=== PATIENT | female | born 1950 | race Caucasian/White ===

== ENCOUNTER 2017-08-15 10:48 | Emergency (ER) | payer MEDICARE, OTHER ==
[2017-08-15 12:40] VITALS: BP 120/49
--- NOTE | 2017-08-15 13:18 | UC ---
Abdominal Pain Female HPI - HPI Summary HPI Summary: Per hand profiler "Nausea for the last 2 weeks. Then she started to have increased frequency with urination about 1 week ago. She went to her PCP and her urine was normal but she was given medication anyway. Her symptoms have not improved. She does have lower abd pain that is intermittent." States that she had same sx 09/15 and had no relief with zofran. states that she came here and saw luan Powers who told her to do something and sx resolved w/ in 1-2 days. she does not recall what instructions were. no records in EMR of this visit. biggest issue today is nausea. denies vomiting, no melena, blood, diarrhea or constipation. no dysruria. no fevers or chills. denies CP. she does have DM adn lipids. She denies abdominal pain. she has urinary freq with significant amount of volume. no urgency. nausea is worse duirng the day and resolves in the vening after she makes herself eata full meal. sx restart in AM though. she used to be on pepcid and had stopped it but restarted it 2 wks ago to see if that would help, but it has not. reports UTD with colonosocpy that was nml and not due a for a coupel more years. denies gerd sx. denies nsaid use. no known CAD. no fhx cad. - History of Current Complaint Chief Complaint: UCGeneralIllness Stated Complaint: NAUSEA,URINARY COMPALINT Time Seen by Provider: 08/15/17 12:34 Allergies/Adverse Reactions: Allergies Allergy/AdvReac Type Severity Reaction Status Date / Time Alendronate [From Fosamax] Allergy Diarrhea Verified 08/15/17 12:39 Metformin Allergy Diarrhea Verified 08/15/17 12:39 PMH/Surg Hx/FS Hx/Imm Hx Previously Healthy: Yes Endocrine History: Diabetes, Dyslipidemia Cardiovascular History: Hypertension - Surgical History Surgical History: Yes Surgery Procedure, Year, and Place: Cholecystectomy, 2010, [facility] - Family History Known Family History: Positive: Diabetes Negative: Cardiac Disease - Social History Alcohol Use: "once a month ... could be a couple times a week" Substance Use Type: None Smoking Status (MU): Never Smoked Tobacco - Immunization History Most Recent Influenza Vaccination: Current for 2014/2015 Season Review of Systems Constitutional: Negative Skin: Negative Eyes: Negative ENT: Negative Respiratory: Negative Cardiovascular: Negative Gastrointestinal: Nausea Genitourinary: Negative Motor: Negative Neurovascular: Negative Musculoskeletal: Negative Neurological: Negative Psychological: Negative Is Patient Immunocompromised?: No All Other Systems Reviewed And Are Negative: Yes Physical Exam Triage Information Reviewed: Yes Appearance: Well-Appearing, No Pain Distress, Well-Nourished - very pleasant Vital Signs: Initial Vital Signs Temp 97.2 F 08/15/17 12:33 Pulse 64 08/15/17 12:33 Resp 14 08/15/17 12:33 BP 120/49 08/15/17 12:33 Pulse Ox 100 08/15/17 12:33 Vital Signs Reviewed: Yes Eye Exam: Normal ENT Exam: Normal ENT: Positive: Pharynx normal, TMs normal Dental Exam: Normal Neck exam: Normal Neck: Positive: Supple, Nontender, No Lymphadenopathy Respiratory Exam: Normal Respiratory: Positive: Lungs clear, Normal breath sounds, No respiratory distress. Negative: Crackles, Rhonchi, Stridor, Wheezing Cardiovascular Exam: Normal Cardiovascular: Positive: RRR, No Murmur, Pulses Normal Abdominal Exam: Normal Abdomen Description: Positive: Nontender, Soft. Negative: CVA Tenderness (R), CVA Tenderness (L), Distended, Guarding, Pulsatile Mass, Splenomegaly Bowel Sounds: Positive: Present Musculoskeletal Exam: Normal Neurological Exam: Normal Psychological Exam: Normal Skin Exam: Normal Abd Pain Female Course/Dx - Course Course Of Treatment: EKG- NSR, nml axis, no AV/IV changes, no ST/T changes. no previous to compare. Urinary sx are not infectious. UA is nml and she has no relief of only urinary c/o which is freqiency (no dysuria or urgency). With h/ o DM, consideration to CAD should be given and perhaps further work up may be necessary with PCP. Also. GI work up. has not been on her pepcid jermaine long time and restarted it 2 wks ago w/o relief of current sx. Change to PPI to see if this helps - can be sx relief as well as diagnostic. she understood me well and is very happy with this plan. - Differential Dx/Diagnosis Differential Diagnosis: ACS, Peptic Ulcer Disease, Urinary Tract Infection Provider Diagnoses: nausea, urinary frequency
== END 2017-08-15 14:13 | disposition home or self-care (01) ==
LOC: UCCORT 10:48
DX: R11.0 Nausea (principal); R35.0 Frequency of micturition; E11.9 Type 2 diabetes mellitus without complications; E78.5 Hyperlipidemia, unspecified; I10 Essential (primary) hypertension; Z88.8 Allergy status to other drugs, medicaments and biological substances
CPT/HCPCS: 81003; 87086; 93005; 99212; G0463

== ENCOUNTER 2019-05-01 11:00 | Emergency (ER) | payer MEDICARE, OTHER ==
--- NOTE | 2019-05-01 11:23 | ED ---
Complex/Multi-Sys Presentation - HPI Summary HPI Summary: 68 year old F brought in by ambulance to [facility] accompanied by with a chief complaint of hypoglycemia, fatigue, weakness since 2 hours ago this morning. The patient rates the pain 0/10 in severity. Symptoms aggravated by nothing. Symptoms alleviated by nothing. Patient reports dizziness, shakiness, aphasia that have since resolved. reports recent weight loss and decreased appetite. Patient recently started taking Ozempic for hx diabetes. Yesterday, patient checked her blood glucose level and it was 47. She drank some orange juice and felt better. This morning, patient overslept past her alarm. She tried to picking tech her phone from the bedside table but wasn't able to. She tried to sit up and walk but wasn't able to. Patient checked her blood glucose level and it was 60. Patient wasn't able to get her words out so her called EMS. brought her some orange juice that she drank. Per EMS, patient had some facial droop on arrival to scene. EMS states that patient is talking fine now. - History Of Current Complaint Time Seen by Provider: 05/01/19 11:07 Hx Obtained From: Patient, Family/Government Property Inspector - , EMS Onset/Duration: Lasting Hours - 2, Still Present Timing: Constant Severity Currently: None Aggravating Factor(s): Nothing Alleviating Factor(s): Nothing Associated Signs And Symptoms: Positive: Other - dizziness, shakiness, aphasia and slurred speech that have since resolved; recent weight loss and decreased appetite - Allergies/Home Medications Allergies/Adverse Reactions: Allergies Allergy/AdvReac Type Severity Reaction Status Date / Time alendronate sodium Allergy Diarrhea Verified 12/31/18 12:18 [From Fosamax] metformin Allergy Diarrhea Verified 12/31/18 12:18 PMH/Surg Hx/FS Hx/Imm Hx Previously Healthy: No Endocrine/Hematology History: Reports: Hx Diabetes Cardiovascular History: Reports: Hx Hypertension - Cancer History Hx Chemotherapy: No Hx Radiation Therapy: No - Surgical History Surgery Procedure, Year, and Place: Cholecystectomy, 2011, [facility] - Family History Known Family History: Positive: Diabetes Negative: Cardiac Disease - Social History Alcohol Use: "once a month ... could be a couple times a week" Hx Substance Use: No Substance Use Type: Reports: None Hx Tobacco Use: No Smoking Status (MU): Never Smoked Tobacco Review of Systems Positive: Fatigue, Other - recent weight loss Positive: Other - hypoglycemia Positive: Other - decreased appetite Positive: Weakness All Other Systems Reviewed And Are Negative: Yes Physical Exam - Summary Physical Exam Summary: Appearance: The patient is well-nourished in no acute distress and in no acute pain. Skin: The skin is warm and dry and skin color reflects adequate perfusion. HEENT: The head is normocephalic and atraumatic. The pupils are equal and reactive. The conjunctivae are clear and without drainage. Nares are patent and without drainage. Mouth reveals moist mucous membranes and the throat is without erythema and exudate. The external ears are intact. The ear canals are patent and without drainage. The tympanic membranes are intact. Neck: The neck is supple with full range of motion and non-tender. There are no carotid bruits. There is no neck vein distension. Respiratory: Chest is non-tender. Lungs are clear to auscultation and breath sounds are symmetrical and equal. Cardiovascular: Heart is regular rate and rhythm. There is no murmur or rub auscultated. There is no peripheral edema and pulses are symmetrical and equal. Abdomen: The abdomen is soft and non-tender. There are normal bowel sounds heard in all four quadrants and there is no organomegaly palpated. Musculoskeletal: There is no back tenderness noted. Extremities are non-tender with full range of motion. There is good capillary refill. There is no peripheral edema or calf tenderness elicited. Neurological: Patient is alert and oriented to person, place and time. The patient has symmetrical motor strength in all four extremities. Cranial nerves are grossly intact. Deep tendon reflexes are symmetrical and equal in all four extremities. Psychiatric: The patient has an appropriate affect and does not exhibit any anxiety or depression Triage Information Reviewed: Yes Vital Signs Reviewed: Yes Diagnostics - Laboratory Result Diagrams: 05/01/19 11:57 05/01/19 11:57 Lab Statement: Any lab studies that have been ordered have been reviewed, and results considered in the medical decision making process. Complex Multi-Symp Course/Dx Course Of Treatment: Ms. Tompkins was nontoxic in appearance here with stable vital signs. She was observed for a period of time and given IV fluid and did fine. I'm concerned that she's lost a lot of weight with her new medication and to mornings in a row it sounds like she had hypoglycemia. She did sleep in both mornings and so she went longer than normal without eating. I recommended she hold her glyburide tonight and keep the appointment she has with Dr. Francis tomorrow. - Diagnoses Provider Diagnoses: Hypoglycemia associated with diabetes Discharge - Sign-Out/Discharge Documenting (check all that apply): Patient Departure - Discharge Patient Received Moderate/Deep Sedation with Procedure: No - Discharge Plan Condition: Stable Disposition: HOME Patient Education Materials: Diabetic Hyperglycemia (ED) Referrals: Pedro Francis MD [Primary Care Provider] - 05/02/19 Additional Instructions: Don't take your Diabeta tonight. Keep your appointment with your primary care provider tomorrow. Return to the Emergency Department for new or worsening symptoms. - Billing Disposition and Condition Condition: STABLE Disposition: Home - Attestation Statements Document Initiated by Vane: Yes Documenting Scribe: Angelika Figueroa Provider For Whom Vane is Documenting (Include Credential): Aman Mckinney MD Scribe Attestation: I, Angelika Figueroa, scribed for Aman Mckinney MD on 05/01/19 at 1355. Scribe Documentation Reviewed: Yes Provider Attestation: The documentation as recorded by the Angelika rouse accurately reflects the service I personally performed and the decisions made by me, Aman Mckinney MD Status of Scribe Document: Viewed
[2019-05-01] MEDS ORDERED: NS 0.9% 1000 ML** 1,000 ML IV ONE (11:48)
[2019-05-01 12:08] LABS: ABS Lymphocytes 1.1 10^3/ul (1.0-4.8); ABS Monocytes 0.3 10^3/ul (0-0.8); ABS Neutrophils 5.2 10^3/ul (1.5-7.7); Eosinophil % 0.2 %; Hematocrit 41 % (35-47); Hemoglobin 14.1 g/dL (12.0-16.0); Lymphocyte % 16.5 %; Mean Corpuscular HGB Conc 34 g/dL (31-36); Mean Corpuscular Hemoglobin 31 pg (27-31); Mean Corpuscular Volume 89 fL (80-97); Mean Platelet Volume 7.9 fL (7.4-10.4); Platelet Count 241 10^3/uL (150-450); Red Blood Count 4.63 10^6 /uL (3.70-4.87); Red Cell Distribution Width 14 % (10-15); White Blood Count 6.7 10^3/uL (3.5-10.8)
[2019-05-01 12:25] LABS: Albumin/Globulin Ratio 1.3 (1-3); BUN/Creatinine Ratio 26.3 (8-20); Calcium 9.9 mg/dL (8.6-10.3); EGFR African American 91.3 (>60); EGFR Non-African American 75.5 (>60); Potassium 3.6 mmol/L (3.5-5.0); Total Bilirubin 0.9 mg/dL (0.2-1.0)
[2019-05-01 13:43] VITALS: BP 152/82
== END 2019-05-01 13:58 | disposition home or self-care (01) ==
LOC: ED 11:00
DX: E11.649 Type 2 diabetes mellitus with hypoglycemia without coma (principal); I10 Essential (primary) hypertension; Z79.84 Long term (current) use of oral hypoglycemic drugs
CPT/HCPCS: 36415; 80053; 85025; 96360; 99282